=== PATIENT | female | born 1990 | race Caucasian/White ===

== ENCOUNTER 2017-03-18 15:36 | Emergency (ER) | payer MEDICAID, OTHER ==
[~2017-03-18 15:36] MED LIST: PREN1TAB19 PO; PRENTAB85
[2017-03-18 16:00] VITALS: PULSE 102; RESP 18
[2017-03-18 16:05] VITALS: PULSE 97
[2017-03-18 16:10] VITALS: PULSE 101
[2017-03-18 16:15] VITALS: PULSE 101
[2017-03-18 16:20] VITALS: PULSE 94
--- NOTE | 2017-03-18 16:52 | PD ---
HPI Chief Complaint contractions Date Seen: March 18, 2017 Travel History International Travel<30 Days: No Contact w/Intl Traveler<30Days: No Known Affected Area: No History of Present Illness HPI This is a 26y/o at 36w4d who presents to the [facility] with c/o contractions since 12p initially q 1 hour, then 45minutes and finally q 2-10 minutes apart. She denies vaginal bleeding or leakage of fluid with reports of active movements. [facility], complicated by: 1. Late transfer from Dr. Senior's office, at 22w 2. previous LUST, failed induction at 3cm, declining TOLAC 3. tobacco abuse in 1 ppd, previously 2 ppd 4. HepC positive, recent diagnosis, GI visit pending 5. Former IV drug abuse 6. Latex, PCN, Dilaudid allergies Para: 1 : 2 History Past Medical History Narrative Medical Hep C recent diagnosis, pending GI visit H/o asthma, no current meds Obstetric History Obstetric History 08/04/2009 41w arrest of dilation vs failed induction, Male 7lb5oz (LUST) Past Surgical History Narrative Surgical c/s in 2008 Family History Family History: Negative Social History Alcohol Use: No Tobacco Use: Yes Substance Abuse: No Allergies-Medications (Allergen,Severity, Reaction): Coded Allergies: Latex (Verified Allergy, Severe, Rash, 03/15/17) Dilaudid (Verified Allergy, Unknown, 03/15/17) Penicillin (Verified Allergy, Unknown, 03/15/17) Home Meds Active Scripts W/ Fe Asparto Glycina (Prenate Elite 20-0.6-0.4 mg)1 Tab Tab1 Tab PO DAILY #60 BOTTLE Ref 5 Prov:Toshia Peters B[employer] PLANT SUPERVISOR 01/04/17 Reported Medications Vit W/ Ferrous Fumara (Pnv Plus Multivi 27-1 mg)1 Tab Tab 11/10/16 Review of Systems Except as stated in HPI: all other systems reviewed are Neg Physical Exam Vital Signs Date Time Temp Pulse Resp B/P Pulse Ox O2 Delivery O2 Flow Rate FiO2 03/18/17 16:00 18 Narrative GENERAL: Well-nourished, well-developed patient. SKIN: Warm and dry. HEAD: Normocephalic and atraumatic. EYES: No scleral icterus. No injection or drainage. ENT: No nasal drainage noted. Mucous membranes pink. Airway patent. NECK: Supple, trachea midline. No JVD. CARDIOVASCULAR: Regular rate and rhythm without murmurs, gallops, or rubs. RESPIRATORY: Breath sounds equal bilaterally. No accessory muscle use. BREASTS: Bilateral exam showed no masses , no retractions, no nipple discharge. ABDOMEN/GI: Abdomen soft, non-tender, bowel sounds present, no rebound, no guarding Gravid to 35 weeks size GENITOURINARY: External Genitalia: intact and normal in appearance Cervix: c/s/p Uterine Contractions: None FHT's: Category: 1 EXTREMITIES: No cyanosis or edema. BACK: Nontender without obvious deformity. No CVA tenderness. NEUROLOGICAL: Awake and alert. Motor and sensory grossly within normal limits. Five out of 5 muscle strength in all muscle groups. Normal speech. Data Data Vital Signs Reviewed: Yes Orders Vital Signs (Adult) .ON ADMISSION (03/18/17 16:10) ^ Labor Status (03/18/17 16:10) Urinalysis - C+S If Indicated (03/18/17 16:10) ^ Non Stress Test (03/18/17 16:10) Labs Laboratory Tests Test 03/18/17 16:25 Urine Color YELLOW Urine Turbidity CLEAR Urine pH 7.0 Urine Specific [place] 1.011 Urine Protein NEG mg/dL Urine Glucose (UA) NEG mg/dL Urine Ketones NEG mg/dL Urine Occult Blood NEG Urine Nitrite NEG Urine Bilirubin NEG Urine Urobilinogen LESS THAN 2.0 MG/DL Urine Leukocyte Esterase TRACE Urine RBC LESS THAN 1 /hpf Urine WBC 3 /hpf Urine Squamous Epithelial 1 /hpf Cells Urine Bacteria RARE /hpf Microscopic Urinalysis Comment CULT NOT INDICATED MDM Medical Record Reviewed: Yes Interpretation(s) 26y/o at 36w4d with previous c/s declining TOLAC, Hep C +, tobacco abuse in -reassuring status, Cat I tracing -no evidence of PTL -Discussed c/s in depth, scheduled for 04/04 at noon, instructions given, discussed risks in depth -Hep C positive, GI visit pending -tobacco abuse, no interested in quitting, has tried in the past -ua negative Plan -D/c home -c/s scheduled for 04/04 -cancelled preop visit -continue routine care Diagnosis Diagnosis: Primary Impression: Previous delivery affecting , antepartum Additional Impression: Tobacco abuse Disposition: 01 DISCHARGE HOME Patient Instructions: Cigarette Smoking and Your Health (GEN) Aneta Huston MD March 18, 2017 16:52
[2017-03-18 17:07] LABS: BACTERIA, URINE RARE /hpf; BLOOD, URINE NEG (NEG); COMMENT (UR) CULT NOT INDICATED; CULTURE IF INDICATED CULT NOT INDICATED; GLUCOSE,URINE NEG (NEG); KETONE, URINE NEG (NEG); NITRITE,URINE NEG (NEG); SQUAMOUS EPITHELIAL CELL URINE 1 /hpf (0-5); URINE COLOR YELLOW (YELLW/STRAW)
== END 2017-03-18 17:34 | disposition home or self-care (01) ==
LOC: HOBED 15:36
DX: O26.893 Other specified pregnancy related conditions, third trimester (principal); O99.333 Smoking (tobacco) complicating pregnancy, third trimester; O99.830 Other infection carrier state complicating pregnancy; F19.20 Other psychoactive substance dependence, uncomplicated; B19.20 Unspecified viral hepatitis C without hepatic coma; Z3A.36 36 weeks gestation of pregnancy
CPT/HCPCS: 81001; 99284

== ENCOUNTER 2017-04-04 10:15 | Inpatient (IN) | payer MEDICAID ==
[2017-04-04] VITALS (24 sets, daily range): BP systolic 94–138; BP diastolic 54–75; PULSE 78–96; RESP 18–20; TEMP 98.1–98.8; O2SAT 95–98
[2017-04-04] MEDS: LACTATED RINGER'S 1000 ML INJ 1,000 ML IV SCH (01:04)
--- NOTE | 2017-04-04 10:56 | HHI.HP ---
HPI Chief Complaint Scheduled C/S Date Seen: Apr 04, 2017 (Randee Maya MD R1) Travel History International Travel<30 Days: No Contact w/Intl Traveler<30Days: No Known Affected Area: No (Randee Maya MD R1) History of Present Illness HPI Patient is a 26y/o at 39w0d who presents to for scheduled C/S due to previous C/S. GERALD 04/11/2017 by 10 week US. She denies leakage of fluid, vaginal bleeding, and contractions. She feels baby moving regularly. She denies URIARTE/N/V/D/fever/sick contacts/SOB/calf pain/ dizziness/seeing spots. She presented to [facility] on 03/18 for contractions, was found to not be in labor. She denies vaginal bleeding or leakage of fluid with reports of active movements. care with [facility] and Dr. Hiral Thomas, MICHELLE 03/30/17, no complication. itself complicated by: 1. Late transfer from [facility] at 22w 2. Prev C/s due to failed induction at 3cm, declining TOLAC 3. tobacco abuse in 1 ppd, previously 2 ppd 4. Hep C positive, recent diagnosis, GI visit pending 04/11/17 5. Former IV drug abuse 6. Latex, PCN, Dilaudid allergies 7. Hx asthma, not requiring inhalers x 2 years 8. GBS positive 9. Allergies to PCN (anaphylaxis), Latex (hives), Dilaudid (hives) (Randee Maya MD R1) History Past Medical History Narrative Medical Hep C recent diagnosis, pending GI visit H/o asthma, no current meds (Randee Maya MD R1) Obstetric History Obstetric History 08/04/2009 41w arrest of dilation vs failed induction, Male 7lb5oz (LUST) Initial lab date: Nov 08, 2016 Blood type: AB D (Rh) Type: Positive Antibody screen: negative Hematocrit (%): 44.3 Hemoglobin (dL): 14.9 Pap test: normal (+bv 11/10/16) Rubella: Immune VDRL: negative Urine screen: Other Urine culture: ecoli HBsAg: negative Hepatitis C: positive HIV: negative Chlamydia: negative Gonorrhea: negative Visit date: Jan 18, 2017 Hematocrit (%): 37.1 Hemoglobin (dL): 12.3 Diabetes screen - 1-hr GGT: 95 HIV: Negative Hepatitis B: Negative Visit date: March 15, 2017 Chlamydia (32 - 36 week labs): negative Gonorrhea (32 - 36 week labs): negative Beta strep culture: positive (Randee Maya MD R1) Past Surgical History Narrative Surgical C/S 2009 R arm laceration repair 2011 R ankle fracture with pinning 2011 (Randee Maya MD R1) Family History Family History: Negative (Randee Maya MD R1) Social History Alcohol Use: No Tobacco Use: Yes (1ppd now, 2ppd until 4 months gestation) Substance Abuse: No (Randee Maya MD R1) Allergies-Medications (Allergen,Severity, Reaction): Coded Allergies: Latex (Verified Allergy, Severe, Rash, 03/30/17) Dilaudid (Verified Allergy, Unknown, 03/30/17) Penicillin (Verified Allergy, Unknown, 03/30/17) Home Meds Active Scripts W/ Fe Asparto Glycina (Prenate Elite 20-0.6-0.4 mg)1 Tab Tab1 Tab PO DAILY #60 BOTTLE Ref 5 Prov:Toshia Peters JACKIE CERTIFIED CODING SPECIALIST 01/04/17 Reported Medications Vit W/ Ferrous Fumara (Pnv Plus Multivi 27-1 mg)1 Tab Tab 11/10/16 Review of Systems Except as stated in HPI: all other systems reviewed are Neg (Randee Maya MD R1) Physical Exam Narrative GENERAL: Well-nourished, well-developed female. SKIN: Warm and dry. HEAD: Normocephalic and atraumatic. EYES: No scleral icterus. No injection or drainage. ENT: No nasal drainage noted. Mucous membranes pink. Airway patent. NECK: Supple, trachea midline. No JVD. CARDIOVASCULAR: Regular rate and rhythm without murmurs, gallops, or rubs. RESPIRATORY: Breath sounds equal bilaterally. No accessory muscle use. ABDOMEN/GI: Abdomen soft, non-tender, bowel sounds present, no rebound, no guarding Gravid to 40+ weeks size GENITOURINARY: External Genitalia: deferred exam Cervix: deferred Uterine Contractions: None FHT's: Category: 1 Baseline: 130 Reactive:y Variability: mod Decels: - EXTREMITIES: No cyanosis or edema. BACK: Nontender without obvious deformity. No CVA tenderness. NEUROLOGICAL: Awake and alert. Motor and sensory grossly within normal limits. Five out of 5 muscle strength in all muscle groups. Normal speech. (Randee Maya MD R1) Data Data Orders Admit To Inpatient (04/04/17 ) Code Status (04/04/17 10:46) Vital Signs (Adult) .ON ADMISSION (04/04/17 10:46) Activity Oob Ad Nichole (04/04/17 10:46) Heart (04/04/17 10:46) Urinary Catheter Management BAUTISTA.Q8H (04/04/17 10:46) ^ Preps (04/04/17 10:46) Scd / Noah / Foot Pump BAUTISTA.QSHIFT (04/04/17 10:46) ^ Ultrasound For Locatio (04/04/17 10:46) Diet Npo (04/04/17 Lunch) Lactated Ringer's 1000 Ml Inj (Lr 1000 M (04/04/17 10:46) Lactated Ringer's 1000 Ml Inj (Lr 1000 M (04/04/17 11:16) Citric Acid-Sodium Citrate Liq (Bicitra (04/04/17 12:30) Type And Screen (04/04/17 10:46) Complete Blood Count With Diff (04/04/17 10:46) Urinalysis - C+S If Indicated (04/04/17 10:46) Inpatient Certification (04/04/17 ) Specimen To Be Collected PRN (04/04/17 10:46) (Randee Maya MD R1) Assessment/Plan Assessment and Plan 26y/o at 39week 0/7 weeks with previous c/s declining TOLAC, Hep C +, tobacco abuse in , admitted for scheduled C/S. Previous delivery affecting Tobacco use affecting Late PNC Intrauterine -reassuring status, Cat I tracing -no evidence of labor -Discussed c/s in depth, scheduled for 04/04 at noon, instructions given, discussed risks in depth -Hep C positive, GI visit pending -tobacco abuse, no interested in quitting, has tried in the past -CBC, Type and Screen pending -UA pending -IV fluids -Monitor heart tones -Routine care GBS positive on 03/19/17 - section, routine jermaine-procedural antibx will be given DW Dr. Bains itself complicated by: 1. Late transfer from [facility] at 22w 2. failed induction at 3cm, declining TOLAC 3. tobacco abuse in 1 ppd, previously 2 ppd 4. Hep C positive, recent diagnosis, GI visit pending 04/11/17 5. Former IV drug abuse 6. Latex, PCN, Dilaudid allergies 7. Hx asthma, not requiring inhalers x 2 years 8. GBS positive 9. Allergies to PCN (anaphylaxis), Latex (hives), Dilaudid (hives) (Randee Maya MD R1) Attestation Patient seen at the bedside. All questions answered. Consents obtained. Will plan to proceed with repeat section. (Sabrina Bains MD) Randee Maya MD R1 Apr 04, 2017 10:56 Sabrina Bains MD Apr 04, 2017 12:10
[2017-04-04] MEDS ORDERED: LACTATED RINGER'S 1000 ML INJ 1,000 ML IV ONE (11:00)
[2017-04-04 11:10] LABS: HEMATOCRIT 36.6 % (35.0-46.0); MEAN CELL VOLUME 94.8 FL (80.0-100.0); MEAN CORPUSCULAR HEMOGLOBIN 32.5 PG (27.0-34.0); MEAN CORPUSCULAR HGB CONC 34.3 % (32.0-36.0); PLATELET COUNT 214 TH/MM3 (150-450); RED BLOOD COUNT 3.86 MIL/MM3 (4.00-5.30); RED CELL DISTRIBUTION WIDTH 13.2 % (11.6-17.2)
[2017-04-04 11:18] LABS: BACTERIA, URINE OCC /hpf; BLOOD, URINE NEG (NEG); COMMENT (UR) CULT NOT INDICATED; CULTURE IF INDICATED CULT NOT INDICATED; GLUCOSE,URINE NEG (NEG); KETONE, URINE NEG (NEG); MUCUS URINE FEW /lpf (OCC); SQUAMOUS EPITHELIAL CELL URINE 1 /hpf (0-5); URINE COLOR YELLOW (YELLW/STRAW)
[2017-04-04 11:19] LABS: NITRITE,URINE POS (NEG)
[2017-04-04 11:21] LABS: HEMO FLAGS AUTO DIFF
[2017-04-04] MEDS ORDERED: LACTATED RINGER'S 1000 ML INJ 1,000 ML IV SCH ×2 (11:30→18:26)
[2017-04-04] MEDS ORDERED: OXYTOCIN 10 UNIT/ML AMP ONE (11:35)
[2017-04-04] MEDS ORDERED: CLINDAMYCIN PHOS 600 MG/4 ML VIAL ONE (11:49)
[2017-04-04] MEDS ORDERED: CLINDAMYCIN INJ 900 MG in SODIUM CHLORIDE 0.9% INJ 100 ML IV SCH (12:00)
[2017-04-04] MEDS ORDERED: CLINDAMYCIN INJ 600 MG in SODIUM CHLORIDE 0.9% INJ 100 ML IV SCH (12:00)
[2017-04-04 12:03] LABS: BANDS 8 % (0-6); EOSINOPHILS 1 % (0-4); MYELOCYTES 1 % (0-0); NEUTROPHIL # MANUAL DIFF 10.1 TH/MM3 (1.8-7.7); POLYS (SEG NEUTROPHILS) 63 % (16-70); WBC DIFF SAMPLE 100
[2017-04-04 12:05] LABS: PLATELET ESTIMATE SMEAR NORMAL (NORMAL); PLATELET MORPHOLOGY NORMAL (NORMAL); SCAN/DIFF FINAL DIFF MANUAL
[2017-04-04] MEDS ORDERED: EPIDURAL-DIPHENHYDRAMINE HCL 50 MG/ML VIAL IV PUSH PRN (12:05)
[2017-04-04] MEDS ORDERED: EPIDURAL-DIPHENHYDRAMINE HCL 50 MG CAP PO PRN (12:05)
[2017-04-04] MEDS ORDERED: EPIDURAL-NO SYSTEMIC NARCOTICS PRN (12:05)
[2017-04-04] MEDS ORDERED: EPIDURAL-NALOXONE HCL 0.4 MG/ML AMP IV PRN (12:05)
[2017-04-04] MEDS ORDERED: EPIDURAL-DO NOT ADMINISTER ANTICOAGULANTS PRN (12:05)
[2017-04-04] MEDS ORDERED: CITRIC ACID-SODIUM CITRATE LIQ 30 ML UDC PO SCH (12:30)
[2017-04-04 12:51] LABS: BLOOD GAS BASE EXCESS 0.3 mmol/L (-2-2); BLOOD GAS O2 HGB SATURATION 15 % (90-100); CORD BLOOD GAS HCO3 26 mmol/L (21-29); CORD BLOOD GAS PCO2 55 mmHG (34-78); CORD BLOOD GAS PO2 10 mmHG (3.0-40.0); DRAW SITE CORD BLOOD
[2017-04-04 12:52] LABS: STAT NO
[2017-04-04] MEDS ORDERED: ZOLPIDEM TARTRATE 5 MG TAB PO PRN (13:15)
[2017-04-04] MEDS ORDERED: SIMETHICONE 80 MG CHEWABLE TAB PO PRN (13:15)
[2017-04-04] MEDS ORDERED: oxyCODONE/ACETAMINOPHEN 5 MG/325 MG TAB PO PRN ×4 (13:15→13:30)
[2017-04-04] MEDS ORDERED: ACETAMINOPHEN 325 MG TAB PO PRN (13:15)
[2017-04-04] MEDS ORDERED: OXYTOCIN 30 UNITS-500ML PREMIX 500 ML IV ONE ×2 (13:15→13:30)
[2017-04-04] MEDS ORDERED: SODIUM CHLORIDE 0.9% FLUSH 10 ML FLUSH IV FLUSH PRN ×2 (13:15→13:30)
[2017-04-04] MEDS ORDERED: ONDANSETRON HCL 4 MG/2 ML VIAL IV PUSH PRN (13:15)
[2017-04-04] MEDS ORDERED: ACETAMINOPHEN 1000 MG/100 ML VIAL IV ONE (13:26)
[2017-04-04] MEDS ORDERED: MORPHINE SULFATE PF 5 MG/10 ML VIAL ONE (13:26)
[2017-04-04] MEDS ORDERED: ONDANSETRON HCL 4 MG/2 ML VIAL ONE (13:26)
[2017-04-04] MEDS ORDERED: fentaNYL CITRATE 250 MCG/5 ML AMP ONE (13:26)
[2017-04-04] MEDS ORDERED: IBUPROFEN 600 MG TAB PO PRN (13:30)
--- NOTE | 2017-04-04 13:40 | PD.OB.DELI ---
Procedure Note Section Procedure Pre Op Diagnosis 26 yo at 39w 0d, previous C/S requesting repeat C/S. Post Op Diagnosis: Post Op Diagnosis Same Performed by Sabrina Bains Procedure: Repeat Low Transverse Sec Indication for delivery: Desired elective repeat Informed consent obtained: For procedure Confirmed correct: Time-out taken Anesthesia: Spinal Medication prior to procedure: Antibiotics, IV Urinary catheter: ml urine output (200cc) Sterile preparation: With 2% chlorexidine (Hibiclens) Position: Supine Operative Features Skin Incision: Pfannenstiel Uterine Incision: Low transverse w/knife / blunt ext Membranes Ruptured: Artificially Presentation: Vertex Time of : 12:30 Delivery of infant: Assisted (Vaccum) One Minute : 8 Five Minute : 9 Weight: 3140 Status of infant: Viable Placenta delivered: Sent to pathology Medications: Oxytocin Estimated blood loss: 1000 Procedure tolerated: Well Maternal Condition: Stable Condition: Stable Procedure in detail Dictated Sabrina Bains MD Apr 04, 2017 13:40
[2017-04-04] MEDS ORDERED: OXYTOCIN 30 UNITS-500ML PREMIX 500 ML ONE (14:08)
[2017-04-04 14:10] LABS: AMPHETAMINE, URINE NEG (NEG); BARBITURATES, URINE NEG (NEG); COCAINE, URINE NEG (NEG)
--- NOTE | 2017-04-04 14:14 | MP ---
cc: JAMES BAINS MD DATE OF SURGERY: 04/04/2017 DATE OF : 1990 PREOPERATIVE DIAGNOSIS A 26-year-old 2, para 1, at 39 and 0/7 weeks, with a history of a previous section requesting repeat section. POSTOPERATIVE DIAGNOSIS A 26-year-old 2, para 1, at 39 and 0/7 weeks, with a history of a previous section requesting repeat section. PROCEDURE Repeat low transverse section by Pfannenstiel skin incision. SURGEON Dr. Bains LIBRARY CLERK OR techs sanitation engineer. vice president industrial relations- Dr. Rojas ANESTHESIA Spinal. ESTIMATED BLOOD LOSS 1000 cc. IV FLUIDS 1500 cc LR. URINE OUTPUT 200 cc clear at the end of the procedure. FINDINGS Viable male infant with Apgars of 8 at one minute and 9 at five minutes, weight 3140 grams. Time of delivery 12:30. PATHOLOGY Placenta. COMPLICATIONS None. DETAILS OF PROCEDURE The patient was taken to the operating room where spinal anesthesia was obtained per Anesthesia. She was then prepped and draped in a normal sterile fashion in supine position. After anesthesia was deemed to be adequate a Pfannenstiel skin incision was then made approximately 2 cm above the symphysis pubis, carried down to the underlying layer of the fascia with a knife. The fascia was then incised in the midline and extended laterally. The superior aspect of the fascia was then grasped with Carlene clamps, elevated, and the underlying muscles were dissected off by sharp and blunt dissection. In a similar fashion the inferior aspect of the fascia was grasped with Carlene clamps, elevated, and again the muscles were dissected off by sharp and blunt dissection. The rectus muscles were then in the midline. The peritoneum was then grasped with two hemostats and entered using Metzenbaum scissors. That incision was then extended superiorly and inferiorly with good visualization of the bladder. A bladder blade was inserted and the vesicouterine peritoneum identified and entered using Metzenbaum scissors. A bladder flap was then created digitally. A bladder blade was then inserted. A transverse incision was then made on the lower uterine aspect, extended by finger fraction. The infant's head was then delivered via vacuum assistance atraumatically. The vacuum was then released and the anterior and posterior shoulders were then delivered followed by the remainder of the body. The cord was clamped x2 and cut. The was handed off to the awaiting nursery staff. Attention was then turned to the patient where a three-vessel placenta was then removed manually. The uterus was then exteriorized, cleared of all clot and debris. The uterine incision was then repaired with 0 Vicryl in a running lock fashion with the second layer imbricated using the same suture. Two [id number] stitches were then placed using 2-0 Vicryl inferior to the uterine incision with good hemostasis noted. The abdomen and pelvis were then suctioned and the uterus was then returned to the abdomen. The peritoneum was then re-approximated using 2-0 Vicryl in a running continuous fashion with good hemostasis noted. The fascial incision was then re-approximated using 0 PDS in a running lock fashion with good hemostasis noted. The subcutaneous adipose tissue was then irrigated and made hemostatic using cautery where needed and then re-approximated in two layers using 2-0 plain gut in a running continuous fashion. The skin was re-approximated using 4-0 Vicryl on a Dipak needle in a subcuticular fashion. All sponge, lap, instrument and needle counts were correct x2. 600 mg of clindamycin was then administered prior to the start of the procedure. 20 units of Pitocin was administered and one liter of LR. The patient was then taken to the recovery room in stable condition. James Bains MD JR/MANAV /1:34 PM /1:49 PM GARCIA
[2017-04-04] MEDS: IBUPROFEN 600 MG TAB PO PRN (16:41)
[2017-04-04] MEDS ORDERED: SODIUM CHLORIDE 0.9% FLUSH 10 ML FLUSH IV FLUSH SCH (21:00)
[2017-04-04] MEDS ORDERED: OXYTOCIN 30 UNITS-500ML PREMIX 500 ML IV PRN ×2 (23:15→23:30)
[2017-04-05 00:22] VITALS: BP 99/56; PULSE 74; RESP 16; TEMP 97.9
[2017-04-05] MEDS: LACTATED RINGER'S 1000 ML INJ 1,000 ML IV SCH (01:04)
[2017-04-05 04:00] VITALS: BP 100/52; PULSE 74; RESP 14; TEMP 98.3
[2017-04-05 05:51] LABS: AUTOMATED NEUTROPHIL # 8.9 TH/MM3 (1.8-7.7); BASOPHIL # 0.1 TH/MM3 (0-0.2); BASOPHIL % 0.5 % (0.0-2.0); EOSINOPHIL # 0.4 TH/MM3 (0-0.4); EOSINOPHIL % 3.1 % (0.0-4.0); HEMATOCRIT 28.3 % (35.0-46.0); HEMO FLAGS DIFF FINAL; LYMPH % 18.2 % (9.0-44.0); LYMPHOCYTE # 2.3 TH/MM3 (1.0-4.8); MEAN CELL VOLUME 96.3 FL (80.0-100.0); MEAN CORPUSCULAR HEMOGLOBIN 32.6 PG (27.0-34.0); MEAN CORPUSCULAR HGB CONC 33.8 % (32.0-36.0); NEUT % 70.2 % (16.0-70.0); PLATELET COUNT 161 TH/MM3 (150-450); RED BLOOD COUNT 2.94 MIL/MM3 (4.00-5.30); RED CELL DISTRIBUTION WIDTH 13.2 % (11.6-17.2); WHITE BLOOD COUNT 12.7 TH/MM3 (4.0-11.0)
--- NOTE | 2017-04-05 06:56 | HHI.OB ---
Subjective Remarks Postoperative day # 1 AFVSS overnight. Incision not draining. Decreased lochia. Denies dysuria. No breast tenderness. She is feeding the baby via breast. Appetite good. No nausea or vomiting. Positive flatus/bowel movement. Ambulating well. Denies calf pain or shortness of breath. Otherwise, she is doing well this morning and has no other complaints. (Eliza Senior MD R2) Objective Vitals/I&O Vital Signs Date Time Temp Pulse Resp B/P Pulse Ox O2 Delivery O2 Flow Rate FiO2 04/05/17 04:00 98.3 74 14 100/52 04/05/17 00:22 97.9 74 16 99/56 04/04/17 20:00 84 94/63 04/04/17 20:00 98.7 20 95 04/04/17 15:17 78 18 111/58 04/04/17 15:17 98.2 04/04/17 14:47 81 18 118/59 97 04/04/17 14:30 97 04/04/17 14:30 18 111/54 04/04/17 14:29 98.8 04/04/17 14:28 81 04/04/17 14:15 85 122/59 04/04/17 14:14 18 97 04/04/17 14:14 98 04/04/17 14:01 104/55 04/04/17 13:55 98 04/04/17 13:55 88 18 97 04/04/17 13:47 96 04/04/17 13:46 86 18 04/04/17 13:46 110/56 04/04/17 13:29 98.1 91 18 138/75 97 04/04/17 11:45 88 04/04/17 11:44 87 04/04/17 11:44 115/65 04/04/17 11:40 87 04/04/17 11:35 88 04/04/17 11:30 88 04/04/17 11:25 89 04/04/17 11:10 94 04/04/17 11:05 88 04/04/17 11:00 94 04/04/17 10:55 96 04/04/17 10:50 96 (Eliza Senior MD R2) Result Diagram: 04/05/17 0540 Objective Remarks GENERAL: Well-nourished, well-developed patient. CARDIOVASCULAR: Regular rate and rhythm without murmurs, gallops, or rubs. RESPIRATORY: Breath sounds equal bilaterally. No accessory muscle use. ABDOMEN/GI: Abdomen soft, non-tender, bowel sounds present. Incision: Clean, dry and intact. Fundus: Firm, non-tender at umbilicus. GENITOURINARY: Light to moderate bleeding. EXTREMITIES: No cyanosis or edema, non-tender, without signs of DVT. Medications and IVs Current Medications Medications (Trade) Dose Ordered Sig/Kristal Route Start Time Stop Time Status Last Admin (Lr 1000 ml Inj) 1,000 ml @ 100 mls/hr Q10H IV 04/04/17 18:15 04/05/17 14:14 04/05/17 01:04 (NS Flush) 2 ml BID IV FLUSH 04/04/17 21:00 (NS Flush) 2 ml UNSCH PRN IV FLUSH 04/04/17 13:15 (Mylicon Chew) 80 mg QID PRN PO 04/04/17 13:15 (Tylenol) 650 mg Q6H PRN PO 04/04/17 13:15 (Motrin) 600 mg Q6H PRN PO 04/04/17 13:15 04/04/17 16:41 (Percocet 5-325 Mg) 1 tab Q4H PRN PO 04/04/17 13:15 (Percocet 5-325 Mg) 2 tab Q4H PRN PO 04/04/17 13:15 (Cait-Colace) 2 tab Q12H PRN PO 04/04/17 13:15 (Ambien) 5 mg HS PRN PO 04/04/17 13:15 (M-M-R Ii Inj) 0.5 ml ONCE ONCE SQ 04/05/17 16:00 04/05/17 16:01 (Boostrix Inj) 0.5 ml ONCE ONCE IM 04/05/17 16:00 04/05/17 16:01 (Zofran Inj) 4 mg Q6H PRN IV PUSH 04/04/17 13:15 Miscellaneous Information NO SYSTEMIC NARCOTICS TO BE GIVEN FO... UNSCH PRN .XX 04/04/17 12:05 04/05/17 12:04 (Narcan Inj) 0.4 mg UNSCH PRN IV 04/04/17 12:05 04/05/17 12:04 (Benadryl Inj) 25 mg Q6H PRN IV PUSH 04/04/17 12:05 04/05/17 12:04 (Benadryl) 50 mg Q6H PRN PO 04/04/17 12:05 04/05/17 12:04 Miscellaneous Information ALL NURSING DEPARTMENTS UNSCH PRN .XX 04/04/17 12:05 04/05/17 12:04 (Habitrol 21 Mg Patch.24 Hr) 1 patch DAILY T-DERMAL 04/05/17 09:00 Miscellaneous Information 1 HS T-DERMAL 04/05/17 21:00 (Eliza Senior MD R2) Assessment/Plan Assessment and Plan 26 y/o female who is POD# 1 s/p CXN -Continue routine care. -Percocet and Motrin PRN pain. -Encouraged OOB. Advised pelvic rest for 6 wks. Will need a f/u appt. in 1 wk for incision check. -Re: ctrl, she would like OCP. -D/c in 1-[address] Bains (Eliza Senior MD R2) Attestation Patient seen and examined. Continue postop care. Agree with resident's assessment and plan. (Sabrina Bains MD) Attestation S/p Section. Patient seen and examined. Continue post op care. ( Sabrina Bains MD) Eliza Senior MD R2 Apr 05, 2017 06:56 Sabrina Bains MD Apr 05, 2017 09:18
[2017-04-05] MEDS: SODIUM CHLORIDE 0.9% FLUSH 10 ML FLUSH IV FLUSH SCH (09:00)
[2017-04-05] MEDS: NICOTINE 21 MG/24 HR PATCH T-DERMAL SCH (09:07)
[2017-04-05 09:10] VITALS: BP 128/67; PULSE 77; RESP 18; TEMP 98.2
[2017-04-05] MEDS: DOCUSATE SODIUM 50 MG/SENNA 8.6 MG TAB PO PRN (09:39)
[2017-04-05] MEDS: IBUPROFEN 600 MG TAB PO PRN ×2 (09:40→18:41)
[2017-04-05] MEDS: RESP: ALBUTEROL 2.5 MG/3 ML NEB (PRN) NEB ×2 (09:57→19:41)
[2017-04-05 15:07] VITALS: BP 115/69; PULSE 90; RESP 20; TEMP 98.2
[2017-04-05] MEDS ORDERED: DIPHTH/TETANUS/ACEL PERTUSSIS (BOOSTER) 0.5 ML VIAL/PFS IM ONE ×2 (16:00)
[2017-04-05] MEDS ORDERED: MEASLES, MUMPS, RUBELLA VACCINE 0.5 ML VIAL SQ ONE ×2 (16:00)
[2017-04-05] MEDS ORDERED: REMOVE OLD NICODERM (NICOTINE) PATCH T-DERMAL SCH (21:00)
[2017-04-06] MEDS: IBUPROFEN 600 MG TAB PO PRN ×2 (00:22→06:34)
[2017-04-06] MEDS: DOCUSATE SODIUM 50 MG/SENNA 8.6 MG TAB PO PRN (00:22)
[2017-04-06] MEDS: RESP: ALBUTEROL 2.5 MG/3 ML NEB (PRN) NEB ×2 (01:21→09:15)
--- NOTE | 2017-04-06 08:06 | HHI.OB ---
Subjective Post Day: 2 Remarks POD #2 s/p repeat Doing well. Lochia light, voiding without difficulty. Ambulating well. + flatus Cramping controlled with Motrin, Percocet occasional for pain. No SOB, CP, N/V. Objective Vitals/I&O Vital Signs Date Time Temp Pulse Resp B/P Pulse Ox O2 Delivery O2 Flow Rate FiO2 04/05/17 15:07 90 115/69 04/05/17 15:07 98.2 20 04/05/17 09:10 98.2 77 18 128/67 Objective Remarks GENERAL: Well-nourished, well-developed patient. NAD CARDIOVASCULAR: Regular rate and rhythm without murmurs, gallops, or rubs. RESPIRATORY: Breath sounds equal bilaterally. No accessory muscle use. ABDOMEN/GI: Abdomen soft, appropriate tenderness Fundus: Firm, non-tender at U-2 Inc: c/d/i with steri-strips GENITOURINARY: Light to moderate bleeding. EXTREMITIES: No cyanosis, trance edema, non-tender, without signs of DVT. Medications and IVs Current Medications Medications (Trade) Dose Ordered Sig/Kristal Route Start Time Stop Time Status Last Admin (NS Flush) 2 ml BID IV FLUSH 04/04/17 21:00 (NS Flush) 2 ml UNSCH PRN IV FLUSH 04/04/17 13:15 (Mylicon Chew) 80 mg QID PRN PO 04/04/17 13:15 (Tylenol) 650 mg Q6H PRN PO 04/04/17 13:15 (Motrin) 600 mg Q6H PRN PO 04/04/17 13:15 04/06/17 06:34 (Percocet 5-325 Mg) 1 tab Q4H PRN PO 04/04/17 13:15 (Percocet 5-325 Mg) 2 tab Q4H PRN PO 04/04/17 13:15 (Cait-Colace) 2 tab Q12H PRN PO 04/04/17 13:15 04/06/17 00:22 (Ambien) 5 mg HS PRN PO 04/04/17 13:15 (Zofran Inj) 4 mg Q6H PRN IV PUSH 04/04/17 13:15 (Habitrol 21 Mg Patch.24 Hr) 1 patch DAILY T-DERMAL 04/05/17 09:00 04/05/17 09:07 Miscellaneous Information 1 HS T-DERMAL 04/05/17 21:00 Assessment/Plan Assessment and Plan 26 y/o female who is POD# 2 s/p CXN -Continue routine care. -Percocet and Motrin PRN pain. -Unsure in desires d/c home today -Will need a f/u appt. in 1 wk for incision check. -Reviewed PP precautions and medications Karina Brand MD Apr 06, 2017 08:06
[2017-04-06] MEDS: NICOTINE 21 MG/24 HR PATCH T-DERMAL SCH (08:52)
[2017-04-06 09:00] VITALS: BP 109/57; PULSE 100; RESP 22; TEMP 97.9
[2017-04-06] MEDS: SODIUM CHLORIDE 0.9% FLUSH 10 ML FLUSH IV FLUSH SCH (09:00)
--- NOTE | 2017-04-06 09:22 | HHI.OB ---
Subjective Post Operative Day: 2 Remarks Postoperative day # 2. AFVSS overnight. Incision not draining. Decreased lochia. Denies dysuria. No breast tenderness. She is feeding the baby via breast and bottle. Appetite good. No nausea or vomiting. Positive flatus/bowel movement. Ambulating well. Denies calf pain. She has some shortness of breath and attributes this to not being able to smoke. Using nicotine patch. In pain at incision site and with abdomen, ibuprofen helping some but would like to have Percocet for pain if possible due to the significant pain. She says she feels comfortable taking the pain medication. Otherwise, she is doing well this morning and has no other complaints. (Hiral Thomas MD) Objective Vitals/I&O Vital Signs Date Time Temp Pulse Resp B/P Pulse Ox O2 Delivery O2 Flow Rate FiO2 04/05/17 15:07 90 115/69 04/05/17 15:07 98.2 20 (Hiral Thomas MD) Result Diagram: 04/05/17 0540 Objective Remarks GENERAL: Well-nourished, well-developed patient. CARDIOVASCULAR: Regular rate and rhythm without murmurs, gallops, or rubs. RESPIRATORY: Breath sounds equal bilaterally. No accessory muscle use. ABDOMEN/GI: Abdomen soft, non-tender, bowel sounds present. Incision: Clean, dry and intact. Fundus: Firm, non-tender at umbilicus. GENITOURINARY: Light to moderate bleeding. EXTREMITIES: No cyanosis or edema, non-tender, without signs of DVT. Medications and IVs Current Medications Medications (Trade) Dose Ordered Sig/Kristal Route Start Time Stop Time Status Last Admin (NS Flush) 2 ml BID IV FLUSH 04/04/17 21:00 (NS Flush) 2 ml UNSCH PRN IV FLUSH 04/04/17 13:15 (Mylicon Chew) 80 mg QID PRN PO 04/04/17 13:15 04/06/17 08:52 (Tylenol) 650 mg Q6H PRN PO 04/04/17 13:15 (Motrin) 600 mg Q6H PRN PO 04/04/17 13:15 04/06/17 06:34 (Percocet 5-325 Mg) 1 tab Q4H PRN PO 04/04/17 13:15 (Percocet 5-325 Mg) 2 tab Q4H PRN PO 04/04/17 13:15 (Cait-Colace) 2 tab Q12H PRN PO 04/04/17 13:15 04/06/17 00:22 (Ambien) 5 mg HS PRN PO 04/04/17 13:15 (Zofran Inj) 4 mg Q6H PRN IV PUSH 04/04/17 13:15 (Habitrol 21 Mg Patch.24 Hr) 1 patch DAILY T-DERMAL 04/05/17 09:00 04/06/17 08:52 Miscellaneous Information 1 HS T-DERMAL 04/05/17 21:00 (Hiral Thomas MD) Assessment/Plan Assessment and Plan 26 y/o female who is POD# 2 s/p CXN -Continue routine care. -Percocet and Motrin PRN pain. -Okay to have Percocet for Pain PRN at a low dose with HepC, will give minimal amount on d/c, #15 -With SOB, breathing treatments already ordered PRN -Desires d/c home this evening -Will need a f/u appt. in 1 wk for incision check, states she already has appt with [facility] April [facility] -Regarding control she is still considering options, and is thinking of OCPs. She will f/u at appt -Advised pelvic rest for 6 weeks -Reviewed PP precautions and medications DW Dr. Brand (Hiral Thomas MD) Hiral Thomas MD Apr 06, 2017 09:22 Karina Brand MD Apr 06, 2017 09:52
[2017-04-06] MEDS ORDERED: OXYC1TAB63 PO (09:32)
[2017-04-06] MEDS ORDERED: SENN1TAB PO (09:32)
[2017-04-06] MEDS ORDERED: Simethicone Chew PO (09:32)
[2017-04-06] MEDS ORDERED: IBUP-232 PO (09:32)
--- NOTE | 2017-04-06 09:33 | HHI.DCPOC ---
Discharge Care Plan Diagnosis: (1) Previous delivery affecting , antepartum (2) Tobacco abuse (3) Status post repeat low transverse section (4) Hepatitis C Report Symptoms to Your Doctor -Temperature above 100.5 degrees -Redness, of incision or excessive or foul smelling drainage -Unusual pain or calf pain -Increased vaginal bleeding -Painful or difficulty urinating -Feelings of extreme sadness or anxiety after 2 weeks Goals to Promote Your Health * To prevent worsening of your condition and complications * To maintain your health at the optimal level Directions to Meet Your Goals Take your medications as prescribed Follow your dietary instruction Follow activity as directed Ensure plenty of rest for recovery Drink fluids for hydration Keep your appointments as scheduled Take your immunizations and boosters as scheduled If your symptoms worsen call your PCP, if no PCP go to Urgent Care Center or Emergency Room Smoking is Dangerous to Your Health. Avoid second hand smoke Call the 24-hour crisis hotline for domestic abuse at Hiral Thomas MD Apr 06, 2017 09:33
[2017-04-09 10:17] LABS: BATH SALTS (MDPV) UR NEG (NEG); ECSTASY (MDMA) UR NEG (NEG); GABAPENTIN UR NEG (NEG); HEROIN (6-ACETYLMORPHINE) UR NEG (NEG); HYDROMORPHONE U NEG (NEG); K2 SPICE UR NEG (NEG); OBMETHADONE UR NEG (NEG); OXYCODONE (PERCODAN) NEG (NEG); PHENCYCLIDINE URINE NEG (NEG)
== END 2017-04-06 14:23 | disposition home or self-care (01) | DRG 765 ==
LOC: H2EB 10:15 → H1EA 15:03
PROVIDERS: ADMIT Obstetrics & Gynecology; ATTEND Obstetrics & Gynecology
PROC: 10D00Z1 Extraction of Products of Conception, Low, Open Approach (ICD-10-PCS; principal; 2017-04-04)
DX: O34.219 Maternal care for unspecified type scar from previous cesarean delivery (principal); O98.413 Viral hepatitis complicating pregnancy, third trimester; B19.20 Unspecified viral hepatitis C without hepatic coma; F17.200 Nicotine dependence, unspecified, uncomplicated; O99.334 Smoking (tobacco) complicating childbirth; O99.824 Streptococcus B carrier state complicating childbirth; Z37.0 Single live birth; Z3A.39 39 weeks gestation of pregnancy; Z91.040 Latex allergy status
CPT/HCPCS: 59025; 80307; 81001; 82805; 85007; 85025; 85027; 86850; 86900; 86901; 88307; 90715; 94640; 94664; G0481; J0131; J2274; J2405; J2590; J3010; J7120; J7613

== ENCOUNTER 2018-03-25 04:06 | Emergency (ER) | payer SELFPAY ==
[~2018-03-25] VITALS: Ht 170.2 cm; Wt 66.0 kg
[~2018-03-25 04:06] MED LIST changes: +IBUP-232 PO
[2018-03-25 04:08] VITALS: BP 115/54; PULSE 113; RESP 20; TEMP 97.9; O2SAT 99
[2018-03-25 05:24] VITALS: O2SAT 100
[2018-03-25 05:26] LABS: AUTOMATED NEUTROPHIL # 6.7 TH/MM3 (1.8-7.7); BASOPHIL # 0.1 TH/MM3 (0-0.2); BASOPHIL % 0.9 % (0.0-2.0); EOSINOPHIL # 0.3 TH/MM3 (0-0.4); EOSINOPHIL % 2.2 % (0.0-4.0); HEMATOCRIT 42.3 % (35.0-46.0); HEMOGLOBIN 14.1 GM/DL (11.6-15.3); LYMPHOCYTE # 2.8 TH/MM3 (1.0-4.8); MEAN CELL VOLUME 93.6 FL (80.0-100.0); MEAN CORPUSCULAR HEMOGLOBIN 31.2 PG (27.0-34.0); MEAN CORPUSCULAR HGB CONC 33.4 % (32.0-36.0); MEAN PLATELET VOLUME 8.5 FL (7.0-11.0); MONO % 12.9 % (0.0-8.0); MONOCYTE # 1.5 TH/MM3 (0-0.9); PLATELET COUNT 342 TH/MM3 (150-450); RED BLOOD COUNT 4.51 MIL/MM3 (4.00-5.30); RED CELL DISTRIBUTION WIDTH 13.4 % (11.6-17.2); WHITE BLOOD COUNT 11.4 TH/MM3 (4.0-11.0)
[2018-03-25 05:38] LABS: AMORPHOUS SEDIMENT, URINE RARE; BACTERIA, URINE RARE /hpf; BILIRUBIN, URINE NEG (NEG); BLOOD, URINE NEG (NEG); GLUCOSE,URINE NEG (NEG); KETONE, URINE NEG (NEG); MUCUS URINE FEW /lpf (OCC); NITRITE,URINE NEG (NEG); SQUAMOUS EPITHELIAL CELL URINE 6 /hpf (0-5); URINE COLOR LIGHT-YELLOW (YELLW/STRAW); URINE LEUKOCYTE ESTERASE SMALL (NEG)
[2018-03-25] MEDS ORDERED: cefTRIAXone INJ 1,000 MG in SODIUM CHLORIDE 0.9% INJ 100 ML IV ONE (05:45)
[2018-03-25] MEDS ORDERED: SODIUM CHLOR 0.9% 1000 ML INJ 1,000 ML IV ONE (05:45)
[2018-03-25 05:50] LABS: ALKALINE PHOSPHATASE 117 U/L (45-117)
[2018-03-25 05:54] LABS: ALBUMIN 3.2 GM/DL (3.4-5.0); ALT (GPT) 363 U/L (10-53); AST (GOT) 149 U/L (15-37); BLOOD UREA NITROGEN 9 MG/DL (7-18); C-REACTIVE PROTEIN 4.96 MG/DL (0.00-0.30); CALCIUM 8.5 MG/DL (8.5-10.1); CHLORIDE 102 MEQ/L (98-107); CREATININE 0.83 MG/DL (0.50-1.00); GLOMERULAR FILTRATION RATE 82 ML/MIN (>89); GLUCOSE,RANDOM 76 MG/DL (74-106); SODIUM (NA) 134 MEQ/L (136-145)
--- NOTE | 2018-03-25 05:56 | PD ---
HPI Chief Complaint: Abdominal Pain Time Seen by Provider: 04:38 Travel History International Travel<30 days: No Contact w/Intl Traveler<30days: No Traveled to known affect area: No History of Present Illness HPI The patient is a 27 year old female who presents to the [facility] emergency department with a history of being diagnosed with a kidney infection at [facility] on March 01. She reports that that time she went in with dysuria, urinary frequency, urinary urgency, abdominal pain, and flank pain. The patient reports that she has a remote history of kidney stones , therefore a CT scan without contrast was done that was reportedly negative for stones. Blood work was otherwise done and a urinalysis was done she reports that she was sent home with pain medication and ciprofloxacin. She reports that she completed the course of antibiotic. She reports that on March 21 she received a phone call stating that she had an infection in her blood and that she needed to return back to the hospital. The patient reports that she was having difficulty returning back to the hospital as she moved, however she now reports to the emergency department on March 25 for evaluation of a reported blood infection as a complication of her kidney infection. She reports having intermittent dysuria currently. She reports having bilateral flank pain and bilateral upper and lower quadrant abdominal pain. She reports having nausea without vomiting. She denies having any diarrhea. Her last bowel movement was 2 days ago. She denies having any blood in her stool or black or tarry stools. The patient incidentally also reports that she has had a cough and congestion since February 01 when she was diagnosed with bronchitis. She denies having any known recent fevers. On review of systems otherwise, she denies increased productivity to her cough, neck pain, chest pain, shortness of breath, or neurologic symptoms. LMP: March 01, 2018 [facility] Past Medical History Narrative Medical The patient's past medical history is significant for having hepatitis C, history of kidney stones Hepatitis: Yes (C) Immunizations Current: Yes Tetanus Vaccination: < 5 Years Influenza Vaccination: No ?: Not Past Surgical History Narrative Surgical The patient's past surgical history is significant for right ankle ORIF, right arm tendon repair Section: Yes Social History Alcohol Use: No Tobacco Use: Yes (1ppd now, 2ppd until 4 months gestation) Substance Use: Yes (Occasional marijuana) Allergies-Medications (Allergen,Severity, Reaction): Coded Allergies: latex (Unverified Allergy, Severe, Rash, 03/25/18) hydromorphone (Unverified Allergy, Unknown, 03/25/18) penicillin G (Unverified Allergy, Unknown, 03/25/18) Reported Meds & Prescriptions Reported Meds & Active Scripts Active No Active Prescriptions or Reported Medications Review of Systems Except as stated in HPI: all other systems reviewed are Neg General / Constitutional: No: Fever Eyes: No: Visual changes HENT: No: Headaches Cardiovascular: No: Chest Pain or Discomfort Respiratory: No: Shortness of Breath Gastrointestinal: Positive: Nausea, Abdominal Pain, No: Vomiting, Diarrhea, Changes in Bowel Habits, Indigestion, Loss of Appetite Genitourinary: Positive: Dysuria, Decreased Urinary Output, Flank Pain, No: Urgency, Frequency, Discharge, Vaginal Bleeding Musculoskeletal: No: Pain Skin: No Rash Neurologic: No: Weakness, Focal Abnormalities, Change in Mentation, Slurred Speech, Sensory Disturbance Psychiatric: No: Depression Endocrine: No: Polydipsia Hematologic/Lymphatic: No: Easy Bruising Physical Exam Narrative General: The patient is a well-developed well-nourished female in no acute distress. Head and Neck exam: Head is normocephalic atraumatic. Eyes: EOMI, pupils are equal round and reactive to light. Nose: Midline septum with pink mucous membranes Mouth: Dentition unremarkable. Moist mucus membranes. Posterior oropharynx is not erythematous. No tonsillar hypertrophy. Uvula midline. Airway patent. Neck: No palpable lymphadenopathy. No nuchal rigidity. No thyromegaly. Cardiovascular: Regular rate and rhythm without murmurs, gallops, or rubs. No pulse deficit to the extremities on simultaneous auscultation and palpation of her radial artery. Lungs: Clear to auscultation bilaterally. No wheezes, rhonchi, or rales. Abdomen: Soft, with tenderness on palpation of bilateral upper quadrants of the abdomen and lateral aspects of the abdomen bilaterally, no point tenderness specifically on palpation over McBurney's point. No guarding, rebound, or rigidity. Normal bowel sounds are audible. Negative Cobian sign. Extremities: No clubbing, cyanosis, or edema. 2+ pulses in all 4 extremities. No calf tenderness on palpation. Back: No spinous process tenderness to palpation. No costovertebral angle tenderness to palpation. Neurologic Exam: Grossly nonfocal. Skin Exam: No rash noted. Intact skin that is warm and dry. Data Data Last Documented VS Vital Signs Date Time Temp Pulse Resp B/P (MAP) Pulse Ox O2 Delivery O2 Flow Rate FiO2 03/25/18 05:24 100 Room Air 03/25/18 04:08 97.9 113 20 115/54 (74) Orders Orders Complete Blood Count With Diff (03/25/18 04:44) Comprehensive Metabolic Panel (03/25/18 04:44) Blood Culture (03/25/18 04:44) C-Reactive Protein (Crp) (03/25/18 04:44) Lipase (03/25/18 04:44) Urinalysis - C+S If Indicated (03/25/18 04:44) Iv Access Insert/Monitor (03/25/18 04:44) Ecg Monitoring (03/25/18 04:44) Oximetry (03/25/18 04:44) Ed Urine Pregnancytest Poc (03/25/18 04:44) Lactic Acid Sepsis Protocol (03/25/18 04:44) Ct Abd/Pel W Iv Contrast(Rout) (03/25/18 05:32) Sodium Chlor 0.9% 1000 Ml Inj (Ns 1000 M (03/25/18 05:45) Ceftriaxone Inj (Rocephin Inj) (03/25/18 05:45) Chest, Single Ap (03/25/18 05:59) Iohexol 350 Inj (Omnipaque 350 Inj) (03/25/18 07:00) Labs Laboratory Tests Test 03/25/18 04:55 White Blood Count 11.4 TH/MM3 Red Blood Count 4.51 MIL/MM3 Hemoglobin 14.1 GM/DL Hematocrit 42.3 % Mean Corpuscular Volume 93.6 FL Mean Corpuscular Hemoglobin 31.2 PG Mean Corpuscular Hemoglobin Concent 33.4 % Red Cell Distribution Width 13.4 % Platelet Count 342 TH/MM3 Mean Platelet Volume 8.5 FL Neutrophils (%) (Auto) 59.0 % Lymphocytes (%) (Auto) 25.0 % Monocytes (%) (Auto) 12.9 % Eosinophils (%) (Auto) 2.2 % Basophils (%) (Auto) 0.9 % Neutrophils # (Auto) 6.7 TH/MM3 Lymphocytes # (Auto) 2.8 TH/MM3 Monocytes # (Auto) 1.5 TH/MM3 Eosinophils # (Auto) 0.3 TH/MM3 Basophils # (Auto) 0.1 TH/MM3 CBC Comment DIFF FINAL Differential Comment Urine Color LIGHT-YELLOW Urine Turbidity CLEAR Urine pH 6.0 Urine Specific [place] 1.001 Urine Protein NEG mg/dL Urine Glucose (UA) NEG mg/dL Urine Ketones NEG mg/dL Urine Occult Blood NEG Urine Nitrite NEG Urine Bilirubin NEG Urine Urobilinogen LESS THAN 2.0 MG/DL Urine Leukocyte Esterase SMALL Urine RBC 1 /hpf Urine WBC 4 /hpf Urine Squamous Epithelial Cells 6 /hpf Urine Amorphous Sediment RARE Urine Bacteria RARE /hpf Urine Mucus FEW /lpf Microscopic Urinalysis Comment CULT NOT INDICATED Blood Urea Nitrogen 9 MG/DL Creatinine 0.83 MG/DL Random Glucose 76 MG/DL Total Protein 8.0 GM/DL Albumin 3.2 GM/DL Calcium Level 8.5 MG/DL Alkaline Phosphatase 117 U/L Aspartate Amino Transf (AST/SGOT) 149 U/L Alanine Aminotransferase (ALT/SGPT) 363 U/L Total Bilirubin 1.0 MG/DL Sodium Level 134 MEQ/L Potassium Level 4.8 MEQ/L Chloride Level 102 MEQ/L Carbon Dioxide Level 24.0 MEQ/L Anion Gap 8 MEQ/L Estimat Glomerular Filtration Rate 82 ML/MIN Lactic Acid Level 2.0 mmol/L C-Reactive Protein 4.96 MG/DL Lipase 127 U/L [facility] Medical Decision Making Medical Screen Exam Complete: Yes Emergency Medical Condition: Yes Medical Record Reviewed: Yes Differential Diagnosis Pyelonephritis, versus sepsis, versus musculoskeletal strain, versus colitis Narrative Course During the course of the patient's emergency department visit, the patient's history, examination, and differential diagnosis were reviewed with the patient. The patient was placed on a color television console monitor with oximetry and frequent blood pressure monitoring. The patient had IV access obtained and blood work sent for analysis. A chest x-ray was ordered, CT scan of the abdomen and pelvis was ordered. Records from [facility] will be obtained. The patient was initially provided normal saline 1 L IV fluid bolus, Rocephin 1 g IV. The patient's laboratory studies were reviewed and remarkable for a white count of 11.4, hemoglobin 14.1, platelets 342 with 12.9 monocytes, CMP is remarkable for a sodium of 134, GFR of 82, AST 149, ALT 363 in a patient with a reported history of hepatitis C, C-reactive protein is elevated at 4.96, albumin 3.2, lipase 127, lactic acid 2, urinalysis shows small leukocyte esterase rare bacteria, culture not indicated. Radiology studies were reviewed and remarkable for a chest x-ray that shows no evidence of acute cardiopulmonary disease. Records from [facility] have not been faxed. The patient CT scan of the abdomen and pelvis is pending result. The patient's case was checked out to the oncoming emergency physician to disposition the patient based on the conclusion of her workup. Diagnosis Primary Impression: Abdominal pain Qualified Codes: R10.84 - Generalized abdominal pain Additional Impression: Flank pain Scripts No Active Prescriptions or Reported Meds Montserrat Merchant MD March 25, 2018 05:56
--- NOTE | 2018-03-25 06:38 | RADRPT ---
EXAM DATE: 03/25/2018 6:36 AM EDT AGE/SEX: 27 years / Female INDICATIONS: Cough. CLINICAL DATA: This is the patient's initial encounter. Patient reports that signs and symptoms have been present for 1 month and indicates a pain score of 0/10. MEDICAL/SURGICAL HISTORY: . Smoker. None. COMPARISON: No prior exams available for comparison. FINDINGS: The lungs are clear without infiltrate, nodule, or mass. There is no appreciable pleural effusion for technique. Heart and mediastinum are unremarkable. CONCLUSION: No acute cardiopulmonary disease. Electronically signed by: Rancho Jackson MD 03/25/2018 6:37 AM EDT
[2018-03-25] MEDS ORDERED: IOHEXOL 350 MG/ML 10 ML VIAL (for RAD DIAG) IVCONTRAST ONE (07:00)
--- NOTE | 2018-03-25 07:42 | RADRPT ---
EXAM DATE: 03/25/2018 6:59 AM EDT AGE/SEX: 27 years / Female INDICATIONS: Back pain. CLINICAL DATA: This is the patient's initial encounter. Patient reports that signs and symptoms have been present for 1 month and indicates a pain score of 6/10. MEDICAL/SURGICAL HISTORY: Hepatitis C. Renal calculi. section. ORAL CONTRAST: No oral contrast ingested. RADIATION DOSE: 6.57 CTDI (mGy) COMPARISON: None available. TECHNIQUE: Multiple contiguous axial images were obtained through the abdomen and pelvis following b olus infusion of 90 ml Omnipaque 350 (iohexol) nonionic water-soluble contrast as a single exam dos e. No oral contrast ingested. Using automated exposure control and adjustment of the mA and/or kV ac cording to patient size, the radiation dose was kept as low as reasonably achievable to obtain optima l diagnostic quality images. FINDINGS: Lower Lungs: The visualized lower lungs are clear. Liver: The liver has a homogeneous density without space-occupying lesion. There is no dilation of th e biliary tree. Spleen: Homogeneous density without enlargement. Pancreas: Unremarkable without mass or calcification. Kidneys: Normal in size and shape. No evidence of mass or hydronephrosis. Numerous left-sided renal calculi measuring 2 to 4 mm in size. There are approximately 8-10 left-sided renal calculi. A few pun ctate right-sided renal calculi measuring 2 to 3 mm. Adrenal Glands: Unremarkable. Aorta: The aorta and proximal iliac vessels are grossly unremarkable without aneurysmal dilation. Bowel/Mesentery: The bowel loops are grossly unremarkable. The cecum and sigmoid colon have a normal configuration. Abdominal Wall: Intact. Retroperitoneum: No evidence of adenopathy in the retrocrural, para-aortic, or deep pelvic regions. Bladder: Contours are smooth. Reproductive Organs: No abnormal masses or calcifications seen. Punctate calcification right pelvis likely phlebolith measuring 2 to 3 mm. Inguinal: The inguinal region is unremarkable without evidence of adenopathy. Bony Structures: Unremarkable. CONCLUSION: 1. Bilateral nonobstructing renal calculi more numerous in the left kidney. 2. Punctate calcification right pelvis likely phlebolith versus less likely distal ureteral calculus . Electronically signed by: Bebeto Grossman MD 03/25/2018 7:40 AM EDT
[2018-03-25] MEDS ORDERED: DOXY100C PO (08:58)
--- NOTE | 2018-03-25 08:58 | PD ---
Physical Exam Narrative Patient signed out to me by Dr. Merchant. Please see her documentation for complete details. Briefly, patient states she came in because she was called by an OSH due to "bacteria in her blood." She says she was seen there on March 01 and discharged with a prescription for Cipro for a kidney infection. She says she took all of the antibiotics and over all feels better. She continues to complain of flank pain. She denies fever or chills. On exam, patient is resting comfortably, she is afebrile. Abdomen is soft, mildly tender to the right side, no rebound or guarding. Data Data Last Documented VS Vital Signs Date Time Temp Pulse Resp B/P (MAP) Pulse Ox O2 Delivery O2 Flow Rate FiO2 03/25/18 05:24 100 Room Air 03/25/18 04:08 97.9 113 20 115/54 (74) Orders Orders Complete Blood Count With Diff (03/25/18 04:44) Comprehensive Metabolic Panel (03/25/18 04:44) Blood Culture (03/25/18 04:44) C-Reactive Protein (Crp) (03/25/18 04:44) Lipase (03/25/18 04:44) Urinalysis - C+S If Indicated (03/25/18 04:44) Iv Access Insert/Monitor (03/25/18 04:44) Ecg Monitoring (03/25/18 04:44) Oximetry (03/25/18 04:44) Ed Urine Pregnancytest Poc (03/25/18 04:44) Lactic Acid Sepsis Protocol (03/25/18 04:44) Ct Abd/Pel W Iv Contrast(Rout) (03/25/18 05:32) Sodium Chlor 0.9% 1000 Ml Inj (Ns 1000 M (03/25/18 05:45) Ceftriaxone Inj (Rocephin Inj) (03/25/18 05:45) Chest, Single Ap (03/25/18 05:59) Iohexol 350 Inj (Omnipaque 350 Inj) (03/25/18 07:00) Labs Laboratory Tests Test 03/25/18 04:55 White Blood Count 11.4 TH/MM3 Red Blood Count 4.51 MIL/MM3 Hemoglobin 14.1 GM/DL Hematocrit 42.3 % Mean Corpuscular Volume 93.6 FL Mean Corpuscular Hemoglobin 31.2 PG Mean Corpuscular Hemoglobin Concent 33.4 % Red Cell Distribution Width 13.4 % Platelet Count 342 TH/MM3 Mean Platelet Volume 8.5 FL Neutrophils (%) (Auto) 59.0 % Lymphocytes (%) (Auto) 25.0 % Monocytes (%) (Auto) 12.9 % Eosinophils (%) (Auto) 2.2 % Basophils (%) (Auto) 0.9 % Neutrophils # (Auto) 6.7 TH/MM3 Lymphocytes # (Auto) 2.8 TH/MM3 Monocytes # (Auto) 1.5 TH/MM3 Eosinophils # (Auto) 0.3 TH/MM3 Basophils # (Auto) 0.1 TH/MM3 CBC Comment DIFF FINAL Differential Comment Urine Color LIGHT-YELLOW Urine Turbidity CLEAR Urine pH 6.0 Urine Specific [place] 1.001 Urine Protein NEG mg/dL Urine Glucose (UA) NEG mg/dL Urine Ketones NEG mg/dL Urine Occult Blood NEG Urine Nitrite NEG Urine Bilirubin NEG Urine Urobilinogen LESS THAN 2.0 MG/DL Urine Leukocyte Esterase SMALL Urine RBC 1 /hpf Urine WBC 4 /hpf Urine Squamous Epithelial Cells 6 /hpf Urine Amorphous Sediment RARE Urine Bacteria RARE /hpf Urine Mucus FEW /lpf Microscopic Urinalysis Comment CULT NOT INDICATED Blood Urea Nitrogen 9 MG/DL Creatinine 0.83 MG/DL Random Glucose 76 MG/DL Total Protein 8.0 GM/DL Albumin 3.2 GM/DL Calcium Level 8.5 MG/DL Alkaline Phosphatase 117 U/L Aspartate Amino Transf (AST/SGOT) 149 U/L Alanine Aminotransferase (ALT/SGPT) 363 U/L Total Bilirubin 1.0 MG/DL Sodium Level 134 MEQ/L Potassium Level 4.8 MEQ/L Chloride Level 102 MEQ/L Carbon Dioxide Level 24.0 MEQ/L Anion Gap 8 MEQ/L Estimat Glomerular Filtration Rate 82 ML/MIN Lactic Acid Level 2.0 mmol/L C-Reactive Protein 4.96 MG/DL Lipase 127 U/L MDM Supervised Visit with [facility]: No Narrative Course Attempts to obtain records were not successful. The facility sent over records that only contained an order list, no results or documentation. We tried again to call for records without success. In the order list that was faxed, there was no order for blood cultures, so I do not think that she was called for a positive blood culture. It is possible she was called due to a urine culture. She overall says that she feels better, but to be sure, will discharge on doxycycline. Patient advised to follow up with a primary care doctor. Advised to return any time for any worsening symptoms. Diagnosis Primary Impression: Abdominal pain Qualified Codes: R10.84 - Generalized abdominal pain Additional Impression: Flank pain Patient Instructions: General Instructions, Kidney Stones (ED) Additional Instruction: Follow up with a primary care doctor. Take all of the antibiotics. Return to the ED as needed for any worsening symptoms. Scripts Doxycycline Hyclate (Doxycycline Hyclate) 100 Mg Cap 100 MG PO BID for Infection, #20 CAP 0 Refills Prov: Chioma Araujo MD 03/25/18 Disposition: 01 DISCHARGE HOME Condition: Stable Chioma Araujo MD March 25, 2018 08:58
== END 2018-03-25 09:07 | disposition home or self-care (01) ==
LOC: NEPE 04:06
DX: R10.84 Generalized abdominal pain (principal); R05 Cough; N20.0 Calculus of kidney; B19.20 Unspecified viral hepatitis C without hepatic coma; F17.200 Nicotine dependence, unspecified, uncomplicated; F12.90 Cannabis use, unspecified, uncomplicated
CPT/HCPCS: 71045; 74177; 80053; 81001; 83605; 83690; 84703; 85025; 86140; 87040; 96374; 99285; J0696; J7030; Q9967